=== PATIENT | male | born 1960 ===

== ENCOUNTER 2018-12-02 09:47 | Outpatient (CLI) | payer OTHER ==
--- NOTE | 2018-12-02 11:25 | Ultrasound Report ---
ULTRASOUND ABDOMEN, COMPLETE INDICATION: R14.0 ABDOMINAL BLOATING/K30 FUNCTIONAL DYSPEPSIA/R11.0 NAUSEA. COMPARISON: No relevant prior imaging study available. FINDINGS: Pancreas: The visualized pancreas is unremarkable. The distal pancreas is poorly visualized.. Abdominal Aorta: No significant abnormality. IVC: No significant abnormality. Liver: The liver measures 12.9 cm in length. There is moderate diffuse fatty infiltration throughout the liver parenchyma. No obvious mass.. Normal hepatopedal blood flow in the main portal vein. Gallbladder: No significant abnormality. Bile ducts: No significant abnormality. Common bile duct measures 4 mm. Kidneys: Right: 12.1 cm in length. A 4.5 cm unilocular cyst is noted in the superior right kidney.. Left: 11.9 cm in length. A 2.3 cm cyst is noted in the inferior left kidney.. Spleen: No significant abnormality. Free fluid: None. Additional Findings: None. IMPRESSION: Hepatic steatosis. Bilateral simple renal cysts.. Signer Name: Jcarlos Rizo Jr, MD Signed: 12/02/2018 11:20 AM Workstation Name: [id number]
== END 2018-12-02 09:48 | disposition home or self-care (01) ==
LOC: US 09:47
PROVIDERS: ATTEND Internal Medicine Gastroenterology
DX: K76.0 Fatty (change of) liver, not elsewhere classified (principal); N28.1 Cyst of kidney, acquired; K30 Functional dyspepsia
CPT/HCPCS: 76700